=== PATIENT | male | born 1990 | race Caucasian/White ===

== ENCOUNTER 2018-02-25 20:45 | Emergency (ER) | payer SELFPAY ==
[2018-02-25 20:50] VITALS: BP 126/68
--- NOTE | 2018-02-25 21:02 | EDPHY ---
H & P Stated Complaint: L leg cat scratch x2 days ago, "feels like more pain" Source: Patient Exam Limitations: No limitations - Personal History Current Tetanus Diphtheria and Acellular Pertussis (TDAP): Unsure - Medical/Surgical History Hx Asthma: No Hx Chronic Respiratory Disease: No Hx Diabetes: No Hx Cardiac Disease: No Hx Renal Disease: No Hx Cirrhosis: No Hx Alcoholism: No Hx HIV/AIDS: No Hx Splenectomy or Spleen Trauma: No Other PMH: denies - Social History Smoking Status: Never smoked Time Seen by Provider: 02/25/18 21:01 HPI/ROS: HPI: This is a 27-year-old male who presents with Chief Complaint: L leg cat scratch x2 days ago, "feels like more pain" Location:left leg Quality: cat scratch Duration:2 days ago Signs and Symptoms: no fever, no nausea, no vomiting, no diarrhea, no urinary symptoms, no chest pain, no shortness of breath, no wheezing, no cough, no sore throat, no neck stiffness, no joint pain, no swollen glands, no ear pain, no rash Timing: Acute Severity: Mild Context: Patient reports that he was scratched and bit in by his friend's cat 2 days ago. His friend's cat is up-to-date on vaccinations. He is unsure of his last tetanus shot. He poor reports that over the last 24 hr he has developed some redness, warmth, tenderness in the area where he was bit and scratched by the cat. He reports after he sustained the injury from the cat 2 days ago he wash the site with soap and water daily. He is ambulatory without any deficits. He denies any drainage, radiation, weakness, fevers. Modifying Factors: Local wound care Comment: ROS: see HPI Constitutional: + fever, no chills, no weight loss Eyes: No blurred vision Respiratory: No shortness of breath, no cough Cardiovascular: No chest pain, no palpitations Gastrointestinal: No nausea, no vomiting, no diarrhea, no hematemesis, no blood in stool Genitourinary: No dysuria, no blood in urine Extremities: No myalgias, no edema Neurologic: No weakness, no numbness Skin: No rashes, no petechiae Hematologic: No bruising, no bleeding MEDICAL/SURGICAL/SOCIAL HISTORY: Medical history: Generally healthy. Does not take any regular medications. Surgical history: Denies Social history: Never smoked. Family history noncontributory. CONSTITUTIONAL: Well-developed well-nourished adult white male, awake and alert , no obvious distress HEENT: Atraumatic and normocephalic, PERRL, EOMI. Nares patent; no rhinorrhea; no nasal mucosal edema. Tympanic membranes clear. Oropharynx clear, no exudate and moist pink mucosa. Airway patent. No lymphadenopathy. No meningismus. Cardiovascular: Normal S1/S2, regular rate, regular rhythm, without murmur rub or gallop. PULMONARY/CHEST: Symmetrical and nontender. Clear to auscultation bilaterally. Good air movement. No accessory muscle usage. ABDOMEN: Soft, nondistended, nontender, no rebound, no guarding, no peritoneal signs, no masses or organomegaly. No CVAT. EXTREMITIES: 2/2 pulses, strength 5/5, no deformities, no clubbing, no cyanosis or edema. NEUROLOGICAL: no focal neuro deficits. GCS 15. SKIN: Warm and dry, left lower leg primarily in that calf portion shows 3-4 superficial abrasions and 2 puncture sites consistent with cat bite and scratch with mild erythema and warmth surrounding the area. No area of fluctuance. Good capillary refill. (Elana Espinosa) Constitutional: Initial Vital Signs Temperature (C) 36.7 C 02/25/18 20:48 Heart Rate 83 02/25/18 20:48 Respiratory Rate 19 02/25/18 20:48 Blood Pressure 126/68 H 02/25/18 20:48 O2 Sat (%) 98 02/25/18 20:48 O2 Delivery Mode Room Air Allergies/Adverse Reactions: No Known Allergies Allergy (Unverified 02/25/18 20:48) Home Medications: Medication Instructions Recorded Amoxicillin/Clavulanate Pot 875 mg PO BID #14 tab 02/25/18 [Augmentin 875 MG TAB (*)] Medical Decision Making ED Course/Re-evaluation: Wound clean with soap and water bacitracin clean sterile dressing applied. Tetanus booster given. Given Augmentin and prescription for same. No fluctuance to I and D. No signs of neurovascular compromise/tenting of skin/compartment syndrome/ extremities and joints examined above and below area of concern and are neurovascularly intact/tenosynovitis/septic arthritis. Patient is ambulatory without any deficits. This patient was seen under the supervision of my secondary supervising physician. I evaluated care for this patient independently. Discussed this patient with Dr. Guzmán. (Elana Espinosa) I did not see this patient while he was in the emergency department. However his care was discussed with the PA while the patient was in the department. I agree with treatment plan and management (Lokesh Guzmán) Differential Diagnosis: Differential diagnosis includes but is not limited to cellulitis, abscess, tenosynovitis, septic arthritis. (Elana Espinosa) - Data Points Medications Given: Discontinued Medications Amoxicillin/Clavulanate Potassium (Augmentin 875mg) 875 mg PO EDNOW ONE PRN Reason: Protocol Stop: 02/25/18 21:21 Last Admin: 02/25/18 21:26 Dose: 875 mg Diphtheria/Tetanus/Acell Pertussis (Boostrix) 0.5 ml IM .ONCE ONE Stop: 02/25/18 21:22 Last Admin: 02/25/18 21:31 Dose: Not Given Departure - Departure Disposition: Home, Routine, Self-Care Clinical Impression: Cat bite of lower leg Qualifiers: Encounter type: initial encounter Laterality: left Qualified Code(s): S81.852A - Open bite, left lower leg, initial encounter Condition: Good Instructions: Animal Bite (ED) Additional Instructions: Wash the site daily with mild soap and water; then pat dry. Apply topical antibiotic ointment and keep covered until fully healed. Apply ice for 30 minutes at a time; 2-3 times per day for the next 1-2 days. Take Augmentin as directed. Do not skip any doses. Referrals: [facility],. [Clinic] - Follow Up Only If Needed Prescriptions: Amoxicillin/Clavulanate Pot [Augmentin 875 MG TAB (*)] 875 mg PO BID #14 tab
[2018-02-25] MEDS ORDERED: AMOXICILLIN/CLAVULANATE POT 875/125 MG TAB PO ONE (21:20)
[2018-02-25] MEDS ORDERED: TDAP ADULT 0.5 ML INJ (BOOSTRIX) IM ONE (21:21)
== END 2018-02-25 21:41 | disposition home or self-care (01) ==
DX: S81.852A Open bite, left lower leg, initial encounter (principal); W55.01XA Bitten by cat, initial encounter